=== PATIENT | female | born 1935 | race Caucasian/White ===

== ENCOUNTER 2021-02-03 07:20 | Observation (INO) | payer OTHER ==
[2021-01-27 14:49] LABS: BASOPHILS % (AUTO) 0.4 % (0.0-5.0); EOSINOPHILS % (AUTO) 1.5 % (0.0-8.0); HEMATOCRIT 44.2 % (36-48); LYMPHOCYTES % (AUTO) 30.8 % (21.0-51.0); MEAN CORPUSCULAR HEMOGLOBIN 30.6 pg (27.0-33.0); MEAN CORPUSCULAR HGB CONC 32.1 g/dL (32.0-36.0); MEAN CORPUSCULAR VOLUME 95.3 fL (79-99); MONOCYTES % (AUTO) 10.7 % (3.0-13.0); NEUTROPHILS % (AUTO) 56.3 % (40.0-77.0); PLATELET COUNT (AUTO) 244 K/uL (130-400); RED BLOOD CELL COUNT(AUTO) 4.64 MIL/uL (4.00-5.50); RED CELL DISTRIBUTION WIDTH 13.4 % (11.0-15.5); WHITE BLOOD COUNT (AUTO) 6.7 K/uL (4.8-10.8)
[2021-01-27 15:05] LABS: PROTHROMBIN TIME 10.9 SEC (9.6-11.6)
[2021-01-27 15:07] LABS: PARTIAL THROMBOPLASTIN TIME 24.9 SEC (26.3-35.5)
[2021-01-27 15:12] LABS: CREATININE 0.8 mg/dL (0.5-1.5); POTASSIUM 4.5 mmol/L (3.5-5.1)
[2021-02-02 10:18] VITALS: BP 155/69
[2021-02-03] VITALS (20 sets, daily range): BP systolic 140–165; BP diastolic 62–84
[~2021-02-03] VITALS: Ht 162.6 cm; Wt 81.2 kg
[~2021-02-03 07:20] MED LIST: ACET-2743 PO; BIOTIN PO; MELATONIN PO
[2021-02-03] MEDS ORDERED: ROPIVICAINE 250MG+KETOROLAC 15MG+EPINEPHRINE 0.3+CLONIDINE 80 IV PRN ×5 (08:00)
[2021-02-03] MEDS ORDERED: CEFAZOLIN SODIUM 1 GM VIAL IVP ONE (08:00)
[2021-02-03] MEDS ORDERED: CEFAZOLIN SODIUM 1 GM VIAL ONE (09:38)
[2021-02-03] MEDS: LACTATED RINGERS 1000ML 1,000 ML IV SCH ×2 (09:40→12:30)
[2021-02-03] MEDS ORDERED: TRANEXAMIC ACID 1000MG/10ML ONE (10:59)
[2021-02-03] MEDS ORDERED: LIDOCAINE PF 100MG/5ML (2%) SYRINGE 5ML ONE (11:22)
[2021-02-03] MEDS ORDERED: SUCCINYLCHOLINE CHLORIDE 20 MG/ML 10 ML VIAL ONE (11:22)
[2021-02-03] MEDS ORDERED: GLYCOPYRROLATE 1 MG/5 ML SYRINGE ONE (11:22)
[2021-02-03] MEDS ORDERED: NEOSTIGMINE 5MG/5ML SYR IV ONE (11:22)
[2021-02-03] MEDS ORDERED: PROPOFOL 10 MG/ML 20ML VIAL IV ONE (11:22)
[2021-02-03] MEDS ORDERED: ROCURONIUM 10MG/1ML SYR 10 MG/ML ML ONE (11:23)
[2021-02-03] MEDS ORDERED: FENTANYL CITRATE PF 50 MCG/1 ML 2ML VIAL ONE ×2 (11:23→12:42)
[2021-02-03] MEDS: 0.9%NACL 1000ML 1,000 ML IV SCH ×2 (11:30→14:11)
[2021-02-03] MEDS ORDERED: HYDROCODONE/ACETAMINOPHEN 5/325 MG TAB PO PRN (11:30)
[2021-02-03] MEDS ORDERED: ONDANSETRON 4MG INJ IVP PRN (11:30)
[2021-02-03] MEDS: ACETAMINOPHEN 500 MG TABLET PO SCH ×2 (11:30→20:37)
[2021-02-03] MEDS: TRAMADOL HCL 50 MG TABLET PO SCH ×2 (12:00→18:41)
[2021-02-03] MEDS ORDERED: ONDANSETRON 4MG INJ ONE (13:19)
[2021-02-03] MEDS ORDERED: ROPIVACAINE 0.5% 5MG/ML 30ML IJ ONE (13:27)
[2021-02-03] MEDS ORDERED: MEPERIDINE-PF 25 MG/ML SYG ONE (14:10)
[2021-02-03] MEDS: CEFAZOLIN SODIUM 1 GM VIAL IVP SCH (17:45)
[2021-02-03] MEDS: FAMOTIDINE 20MG TAB PO SCH (20:35)
[2021-02-03] MEDS: CELECOXIB 200 MG CAP PO SCH (20:35)
[2021-02-03] MEDS: OXYCODONE HCL 5 MG TAB PO PRN (20:51)
[2021-02-03] MEDS: MORPHINE 4 MG SYG IVP PRN (22:15)
[2021-02-04] MEDS: TRAMADOL HCL 50 MG TABLET PO SCH ×5 (00:05→23:28)
[2021-02-04] MEDS: CEFAZOLIN SODIUM 1 GM VIAL IVP SCH (00:05)
[2021-02-04] MEDS: 0.9%NACL 1000ML 1,000 ML IV SCH ×2 (00:09→07:30)
[2021-02-04 03:56] VITALS: BP 148/78
[2021-02-04] MEDS: ACETAMINOPHEN 500 MG TABLET PO SCH ×3 (04:03→20:17)
[2021-02-04] MEDS: MORPHINE 4 MG SYG IVP PRN (04:12)
[2021-02-04 04:23] LABS: HEMATOCRIT 33.4 % (36-48); MEAN CORPUSCULAR HEMOGLOBIN 30.5 pg (27.0-33.0); MEAN CORPUSCULAR HGB CONC 32.6 g/dL (32.0-36.0); MEAN CORPUSCULAR VOLUME 93.6 fL (79-99); RED BLOOD CELL COUNT(AUTO) 3.57 MIL/uL (4.00-5.50); RED CELL DISTRIBUTION WIDTH 13.1 % (11.0-15.5); WHITE BLOOD COUNT (AUTO) 7.7 K/uL (4.8-10.8)
[2021-02-04 04:46] LABS: CREATININE 0.9 mg/dL (0.5-1.5)
[2021-02-04 07:30] VITALS: BP 136/40
[2021-02-04] MEDS: POLYETHYLENE GLYCOL 3350 17 GM POWD.PACK PO SCH (10:11)
[2021-02-04] MEDS: FAMOTIDINE 20MG TAB PO SCH ×2 (10:11→20:16)
[2021-02-04] MEDS: OXYCODONE HCL 5 MG TAB PO PRN (10:11)
[2021-02-04] MEDS: CELECOXIB 200 MG CAP PO SCH ×2 (10:11→20:16)
[2021-02-04 11:00] VITALS: BP 108/49
[2021-02-04 16:00] VITALS: BP 118/44
[2021-02-04 20:01] VITALS: BP 134/56
[2021-02-04 23:41] VITALS: BP 119/54
[2021-02-05 04:11] VITALS: BP 116/52
[2021-02-05] MEDS: ACETAMINOPHEN 500 MG TABLET PO SCH ×3 (04:23→19:46)
[2021-02-05] MEDS: TRAMADOL HCL 50 MG TABLET PO SCH ×3 (05:58→17:17)
[2021-02-05 07:30] VITALS: BP 137/60
[2021-02-05] MEDS: POLYETHYLENE GLYCOL 3350 17 GM POWD.PACK PO SCH (09:15)
[2021-02-05] MEDS: FAMOTIDINE 20MG TAB PO SCH ×2 (09:15→19:45)
[2021-02-05] MEDS: CELECOXIB 200 MG CAP PO SCH ×2 (09:15→19:45)
[2021-02-05] MEDS: ASPIRIN 81 MG EC TAB PO SCH ×2 (09:15→19:45)
[2021-02-05] MEDS: OXYCODONE HCL 5 MG TAB PO PRN (09:16)
[2021-02-05 11:00] VITALS: BP 122/51
[2021-02-05 16:00] VITALS: BP 140/38
[2021-02-05 20:18] VITALS: BP 146/58
[2021-02-05 23:33] VITALS: BP 117/53
[2021-02-06] MEDS: TRAMADOL HCL 50 MG TABLET PO SCH ×3 (01:33→12:18)
[2021-02-06 04:03] VITALS: BP 135/60
[2021-02-06] MEDS: ACETAMINOPHEN 500 MG TABLET PO SCH ×2 (05:13→11:30)
[2021-02-06 07:38] VITALS: BP 134/58
[2021-02-06] MEDS: ASPIRIN 81 MG EC TAB PO SCH (10:15)
[2021-02-06] MEDS: FAMOTIDINE 20MG TAB PO SCH (10:16)
[2021-02-06] MEDS: CELECOXIB 200 MG CAP PO SCH (10:16)
[2021-02-06] MEDS: POLYETHYLENE GLYCOL 3350 17 GM POWD.PACK PO SCH (10:16)
[2021-02-06 11:09] VITALS: BP 136/56
[2021-02-06] MEDS ORDERED: BISACODYL 10 MG SUPP.RECT RC PRN (11:30)
[2021-02-06 15:40] VITALS: BP 138/63
== END 2021-02-06 16:48 ==
LOC: DAH 07:20 → DAHIP 07:21 → DAH 07:21 → 4DH 16:00 → 4BH 20:15
PROVIDERS: ADMIT Orthopaedic Surgery; ATTEND Orthopaedic Surgery
DX: M17.12 Unilateral primary osteoarthritis, left knee (principal); Z20.822 Contact with and (suspected) exposure to COVID-19; M21.162 Varus deformity, not elsewhere classified, left knee; M24.562 Contracture, left knee; Z79.899 Other long term (current) drug therapy; Z98.890 Other specified postprocedural states
CPT/HCPCS: 27446; 36415 ×2; 80048 ×2; 85025; 85027; 85610; 85730; 87635; 87641; 88305; 88311; 96361; 96374; 96375; 96376; 97039 ×6; 97116 ×6; 97161; 97530 ×5; A4215; A4221; A4222; A4223; A4649 ×4; A4663; A4930; A6207; A6219; A6223; A6260; C1776; C9803; G0378 ×72; J0171; J0330; J0690 ×3; J0735; J1885; J2001; J2175; J2270 ×2; J2405; J2704; J2710; J2795 ×2; J3010 ×2; J3490 ×2; J7030 ×2; J7120